=== PATIENT | female | born 1945 | race Caucasian/White ===

== ENCOUNTER 2018-03-22 09:56 | Emergency (ER) | payer BC, MEDICARE ==
[~2018-03-22] VITALS: Ht 157.5 cm; Wt 50.0 kg
--- NOTE | 2018-03-22 10:15 | NUR ---
"MY PRIMARY DOCTOR THOUGHT THAT I HAD AN ULCER AFTER I TOLD HIM THAT MY STOOL WAS BLACKISH AND VERY STICKY." DIARRHEA X3 DAYS. PT ALSO C/O ABD PAIN AND BLOATING. PER TRIAGE NOTE
--- NOTE | 2018-03-22 10:28 | NUR ---
VSS STABLE PT IS IN IMAGING NOW
[2018-03-22 10:30] LABS: BASOPHILS # (AUTO) 0.04 x10^3/uL (0-0.1); BASOPHILS % (AUTO) 1 % (0-1); EOSINOPHILS # (AUTO) 0.21 x10^3/uL (0-0.4); EOSINOPHILS % (AUTO) 3 % (1-7); LYMPHOCYTES # (AUTO) 1.58 x10^3/uL (1-3.4); LYMPHOCYTES % (AUTO) 20 % (22-44); MD NO; MEAN CORPUSCULAR HGB CONC 32.5 g/dL (32.4-35.8); MEAN CORPUSCULAR VOLUME 95.5 fL (80-100); MEAN PLATELET VOLUME 7.6 fL (7.4-10.4); MONOCYTES # (AUTO) 0.74 x10^3/uL (0.2-0.8); MONOCYTES % (AUTO) 9 % (2-9); NEUTROPHILS # (AUTO) 5.37 x10^3/uL (1.8-6.8); NEUTROPHILS % (AUTO) 68 % (42-75); PLATELET COUNT 381 x10^3/uL (130-400); RED BLOOD COUNT 4.69 x10^6/uL (3.82-5.3); RED CELL DISTRIBUTION WIDTH 14.6 % (9.6-15.2)
[2018-03-22] MEDS ORDERED: SODIUM CHLORIDE FLUSH 10ML SYR IVF ONE (10:30)
[2018-03-22 10:38] LABS: INTERNATIONAL NORMALIZED RATIO 0.95 (0.93-1.1); PROTHROMBIN TIME 10.1 Seconds (9.6-11.5)
[2018-03-22 10:44] LABS: CHLORIDE 105 mmol/L (98-107)
[2018-03-22 10:49] LABS: ALANINE AMINOTRANSFERASE 21 U/L (12-78); ALBUMIN 3.9 g/dL (3.4-5.0); ALKALINE PHOSPHATASE 83 U/L (45-117); ANION GAP 4 mmol/L (5-15); BILIRUBIN,TOTAL 0.2 mg/dL (0.2-1.0); CALCIUM 9.4 mg/dL (8.5-10.1); CREATININE 0.95 mg/dL (0.55-1.02); TOTAL PROTEIN 7.8 g/dL (6.4-8.2)
[2018-03-22] MEDS ORDERED: SODIUM CHLORIDE 0.9%, 500ML IVBOLUS ONE (11:30)
[2018-03-22] MEDS ORDERED: OMNIPAQUE 350 MG/ML, 100ML BOTTLE ONE (12:28)
[2018-03-22 13:27] VITALS: BP 114/34
--- NOTE | 2018-03-22 13:28 | NUR ---
GIVEN ALL DC INSTRUCION PT AND FAMILY UNDERSTOOD
== END 2018-03-22 13:29 | disposition home or self-care (01) ==
LOC: ED 12:45
DX: R10.32 Left lower quadrant pain (principal); K59.00 Constipation, unspecified; R11.0 Nausea
CPT/HCPCS: 36415; 74021; 74177; 80053; 85025; 85610; 86850; 86900; 99284; J7040; Q9967